=== PATIENT | male | born 1960 | race Caucasian/White ===

== ENCOUNTER 2019-11-12 19:08 | Emergency (ER) | payer SELFPAY ==
[2019-11-12] MEDS ORDERED: Bacitracin Oint 1 GM U/D Packet TOP ONE (19:30)
[2019-11-12] MEDS ORDERED: Lidocaine 1% 10 ML MDV INJECT ONE (20:10)
--- NOTE | 2019-11-12 20:26 | EDM.PDOC ---
ED HPI GENERAL MEDICAL PROBLEM - General Chief Complaint: Laceration Stated Complaint: right hand laceration Time Seen by Provider: 11/12/19 20:23 Source of Information: Reports: Patient History Limitations: Reports: No Limitations - History of Present Illness INITIAL COMMENTS - FREE TEXT/NARRATIVE: History of present illness: [Patient is a 59-year-old male who presents 5 hours after sustaining an injury to the back of his right hand. He was trying to open up a garbage disposal system and his hand slipped and he suffered a laceration to the dorsal aspect of his right hand. Says he cleaned the area with soap and water and put a bandage on it to control the bleeding. After finishing his work at home he decided to come in to get sutures. Denies any other injuries or complaints at this time. Reports that his last tetanus is unknown.] Review of systems: As per history of present illness and below otherwise all systems reviewed and negative. Past medical history: As per history of present illness and as reviewed below otherwise noncontributory. Surgical history: As per history of present illness and as reviewed below otherwise noncontributory. Social history: No reported history of drug or alcohol abuse. Family history: As per history of present illness and as reviewed below otherwise noncontributory. Physical exam: General: Awake, alert, no acute distress, A&O X3. HEENT: Atraumatic, normocephalic, pupils reactive, negative for conjunctival pallor or scleral icterus, mucous membranes moist, throat clear, neck supple, nontender, trachea midline. Lungs: Clear to auscultation, breath sounds equal bilaterally, chest nontender. Heart: RRR, normal S1S2, no JVD. Abdomen: Soft, nondistended, nontender. Negative for masses or hepatosplenomegaly. Negative for costovertebral tenderness. Pelvis: Stable nontender. Genitourinary: Deferred. Rectal: Deferred. Extremities: 3.5 cm U-shaped laceration on the dorsal aspect of the right hand. Flexion and extension of all fingers is within normal limits. Hand is neurovascular intact with capillary refill less than 2 seconds. Neuro: Awake, alert, oriented. Motor and sensory grossly intact throughout. Exam nonfocal. Diagnostics: [] Therapeutics: [] Impression: [] Plan: [] Definitive disposition and diagnosis as appropriate pending reevaluation and review of above. Review of Systems - Review of Systems Review Of Systems: Comprehensive ROS is negative, except as noted in HPI. ED EXAM, GENERAL - Physical Exam Exam: See Below (see h and p) ED TRAUMA EXTREMITY PROCEDURES - Laceration/Wound Repair Right Dorsal Hand Lac/Wound Length In cm: 3.5 (U shaped) Appearance: Superficial, Clean Distal NVT: Neuro & Vascular Intact, No Tendon Injury Anesthetic Type: Local Local Anesthesia - Lidocaine (Xylocaine): 1% Plain Local Anesthetic Volume: 5cc Skin Prep: Saline Exploration/Debridement/Repair: Wound Explored, Explored to Base, No Foreign Material Found Closed With: Sutures Suture Size: 5-0 # of Sutures: 8 Suture Type: Nylon Course - Vital Signs Text/Narrative:: Patient tolerated the procedure well. Achieved good cosmetic result with suture repair. He declined tetanus booster here in the ED. Wound otherwise is clean, no active bleeding, and is neurovascularly intact with normal flexion and extension and other motor function. Encouraged him to follow-up with PCP. Instructed him to have sutures removed in 5 to 7 days. Otherwise well- appearing and stable at the time of discharge, albeit mildly hypertensive, encouraged him to follow with PCP for this as well. Otherwise no symptoms that would be concerning related to his hypertension, no chest pain, no shortness of breath, no blurry vision, no headache. Departure - Departure Time of Disposition: 20:10 Disposition: Home, Self-Care 01 Condition: Good Clinical Impression: Hand laceration - Discharge Information Instructions: Laceration Care, Adult Forms: ED Department Discharge Additional Instructions: Have sutures removed in 5 to 7 days. Take all medications as previously prescribed. Return to the ER with any new or worsening symptoms. Keep the area clean and dry. The following information is given to patients seen in the emergency department who are being discharged to home. This information is to outline your options for follow-up care. We provide all patients seen in our emergency department with a follow-up referral. The need for follow-up, as well as the timing and circumstances, are variable depending upon the specifics of your emergency department visit. If you don't have a primary care physician on staff, we will provide you with a referral. We always advise you to contact your personal physician following an emergency department visit to inform them of the circumstance of the visit and for follow-up with them and/or the need for any referrals to a consulting specialist. The emergency department will also refer you to a specialist when appropriate. This referral assures that you have the opportunity for follow-up care with a specialist. All of these measure are taken in an effort to provide you with optimal care, which includes your follow-up. Under all circumstances we always encourage you to contact your private physician who remains a resource for coordinating your care. When calling for follow-up care, please make the office aware that this follow-up is from your recent emergency room visit. If for any reason you are refused follow-up, please contact the [facility] Emergency Department at and asked to speak to the emergency department charge nurse. Sepsis Event Note - Focused Exam Date Exam was Performed: 11/12/19 Time Exam was Performed: 20:30
== END 2019-11-12 20:12 | disposition home or self-care (01) ==
LOC: MW.ED 19:08
DX: S61.411A Laceration without foreign body of right hand, initial encounter (principal); W26.8XXA Contact with other sharp object(s), not elsewhere classified, initial encounter
CPT/HCPCS: 12002; 99282; J2001